=== PATIENT | male | born 1960 | race Caucasian/White ===

== ENCOUNTER → 2019-04-07 | Outpatient (CLI) | payer MEDICARE ==
[2019-04-07 12:25] LABS: ALBUMIN 3.9 gm/dl (3.1-4.5); ALKALINE PHOSPHATASE 70 U/L (45-117); BUN 17 mg/dl (7-24); CHLORIDE 99 mmol/L (98-107); CREATININE 0.92 mg/dL (0.70-1.30); POTASSIUM 4.3 mmol/L (3.5-5.1); SGOT/AST 13 IU/L (3-35); SGPT/ALT 36 U/L (12-78); SODIUM 133 mmol/L (136-145); TOTAL PROTEIN 8.1 gm/dL (6.4-8.2)
== END | disposition home or self-care (01) ==
LOC: LAB 11:41
PROVIDERS: Nurse Practitioner Family
DX: E87.5 Hyperkalemia (principal)

== ENCOUNTER 2020-08-06 13:39 | Emergency (ER) | payer MEDICARE ==
[~2020-08-06] VITALS: Ht 195.5 cm; Wt 104.3 kg
[2020-08-06 14:25] LABS: BASO % 0.6 % (0.0-1.0); EOS % 0.6 % (1.0-4.0); HEMATOCRIT 41.6 % (42.0-52.0); LYMPH % 21.6 % (27.0-41.0); MEAN CELL VOLUME 83.7 fl (80.0-94.0); MEAN CORPUSCULAR HGB CONC 35.8 g/dl (33.0-37.0); MEAN PLATELET VOLUME 9.8 fl (9.6-12.3); MONO # 0.4 10*3/uL (0.1-1.0); MONO % 7.4 % (3.0-9.0); NEUT # 3.3 10*3/uL (2.3-7.9); NEUT % 69.6 % (47.0-73.0); PLATELET COUNT AUTOMATED 181 10*3/uL (130-400); RED BLOOD COUNT 4.97 10*6/uL (4.50-5.90); WHITE BLOOD COUNT 4.7 10*3/uL (4.8-10.8)
[2020-08-06 14:38] LABS: ALKALINE PHOSPHATASE 76 U/L (45-117); BUN 27 mg/dl (7-24); CHLORIDE 99 mmol/L (98-107); CREATININE 1.24 mg/dL (0.70-1.30); SGOT/AST 27 IU/L (3-35); SGPT/ALT 43 U/L (12-78); SODIUM 131 mmol/L (136-145); TOTAL PROTEIN 8.2 gm/dL (6.4-8.2)
[2020-08-06] MEDS ORDERED: PHENERGAN25 M3 PO (15:46)
[2020-08-06] MEDS ORDERED: AUGMENTIN 875875 MG PO (15:46)
[2020-08-06] MEDS ORDERED: ZOFRAN4 MG PO (15:46)
== END 2020-08-06 15:51 | disposition home or self-care (01) ==
LOC: ED 13:39
PROVIDERS: Student in an Organized Health Care Education/Training Program
DX: K57.32 Diverticulitis of large intestine without perforation or abscess without bleeding (principal); R11.2 Nausea with vomiting, unspecified; E11.9 Type 2 diabetes mellitus without complications; F17.200 Nicotine dependence, unspecified, uncomplicated

== ENCOUNTER 2024-06-29 11:01 | Emergency (ER) | payer MEDICARE ==
[~2024-06-29] VITALS: Ht 195.5 cm; Wt 99.8 kg
[~2024-06-29 11:01] MED LIST: AUGMENTIN 875875 MG PO; PHENERGAN25 M3 PO; ZOFRAN4 MG PO
[2024-06-29] MEDS ORDERED: SODIUM CHLORIDE 0.9% 1,000 ML IV ONE (11:55)
[2024-06-29] MEDS ORDERED: Ondansetron Hydrochloride 4 MG/2 ML VIAL IV ONE (11:55)
[2024-06-29 12:18] LABS: BASO % 0.4 % (0.0-1.0); EOS % 0.1 % (1.0-4.0); HEMATOCRIT 44.7 % (42.0-52.0); MEAN CELL VOLUME 80.3 fl (80.0-94.0); MEAN CORPUSCULAR HGB 28.7 pg (27.0-31.0); MEAN CORPUSCULAR HGB CONC 35.8 g/dl (33.0-37.0); MEAN PLATELET VOLUME 9.2 fl (9.6-12.3); MONO # 0.8 10*3/uL (0.1-1.0); MONO % 8.2 % (3.0-9.0); NEUT # 7.4 10*3/uL (2.3-7.9); NEUT % 80.1 % (47.0-73.0); PLATELET COUNT AUTOMATED 221 10*3/uL (130-400); RED BLOOD COUNT 5.57 10*6/uL (4.50-5.90); RED CELL DISTRI WIDTH 12.6 % (0-14.5); WHITE BLOOD COUNT 9.3 10*3/uL (4.8-10.8)
[2024-06-29] MEDS ORDERED: LIPITOR10 MG PO (12:18)
[2024-06-29] MEDS ORDERED: HYDR25T PO (12:19)
[2024-06-29] MEDS ORDERED: METFORMIN HYD1000 MG PO (12:19)
[2024-06-29] MEDS ORDERED: LISINOPRIL20 MG PO (12:19)
[2024-06-29] MEDS ORDERED: TOPCARE OMEPRAZ20 MG PO (12:19)
[2024-06-29] MEDS ORDERED: JARDIANCE10 MG PO (12:19)
[2024-06-29 12:36] LABS: POTASSIUM 4.4 mmol/L (3.4-5.1); TOTAL PROTEIN 8.3 gm/dL (6.0-8.0)
[2024-06-29 14:26] LABS: BILIRUBIN Negative (Negative); BLOOD 1+ (Negative); CLARITY Clear (Clear); COLOR Dark Yellow (Yellow); GLUCOSE 3+ (Negative); KETONE 1+ (Negative); LEUKO ESTERASE Negative (Negative); NITRITE Negative (Negative); PH 5.5 (4.5-8.0); SPECIFIC GRAVITY >= 1.030 (1.001-1.030)
[2024-06-29 14:34] LABS: BACTERIA 1+
[2024-06-29] MEDS ORDERED: Ondansetron4 MG SL (15:14)
[2024-06-29] MEDS ORDERED: AVPAK AZITHROM250 M1 PO (15:14)
== END 2024-06-29 15:19 | disposition home or self-care (01) ==
LOC: ED 11:01
PROVIDERS: Internal Medicine
DX: J10.1 Influenza due to other identified influenza virus with other respiratory manifestations (principal); J40 Bronchitis, not specified as acute or chronic; E87.1 Hypo-osmolality and hyponatremia; R11.2 Nausea with vomiting, unspecified; E11.9 Type 2 diabetes mellitus without complications; I10 Essential (primary) hypertension; R10.13 Epigastric pain